=== PATIENT | female | born 2000 ===

== ENCOUNTER 2018-06-13 00:25 | Emergency (ER) | payer SELFPAY ==
--- NOTE | 2018-06-13 00:39 | ED Physician Documentation ---
Abdominal Pain - HISTORIAN Historian: patient - HPI Stated Complaint: abdominal pain x 2 days Chief Complaint: Abdominal Pain Onset: days ago (2) Duration: waxing, waning Timing: gone now Context: denies: out of country travel, bad food, recent trauma Severity: mild Quality: pain, cramping Associated Symptoms: none Exacerbated by: other (laying flat ) Relieved by: nothing Further Comments: yes (She reports starting about 24 hours ago she has a pain (epigastric in her explanation) that comes when she lays flat more frequent. The pain is cramping in nature and she has noted that she has no nausea. She has decreased appetitie. No fever. No nausea or vomiting or diarrhea. She is currently on her period. She takes oral control. She has been "fighting a cold" and she took all the zinc in a box) - ROS CONST: recent illness ("cold" ) MS/SKIN/LYMPH: none NEURO/PSYCH: none - SOCIAL HX Smoking History: non-smoker Alcohol Use: none Drug Use: none - FAMILY HX Family History: none - PAST HX Past History: none Ischemic Bowel Risk Factors: none Immunizations: UTD Home Medications: Ambulatory Orders Medication Instructions Recorded Levonorgestrel-Ethin Estradiol 1 tab PO DAILY 06/13/18 [Falmina-28 Tablet] Allergies/Adverse Reactions: Allergies Allergy/AdvReac Type Severity Reaction Status Date / Time No Known Allergies Allergy Verified 06/13/18 00:41 - VITAL SIGNS Vital Signs: Vital Signs Temp Pulse Resp BP Pulse Ox 98.2 F 82 16 133/92 98 06/13/18 00:26 06/13/18 00:26 06/13/18 00:26 06/13/18 00:26 06/13/18 00:26 - REVIEWED ASSESSMENTS Nursing Assessment Reviewed: Yes Vitals Reviewed: Yes Progress - Progress Progress: 0200: results discussed . She and are aware and agreeable to plan DG ED Results Lab/Radiology - Radiology Radiology Impressions: Abdomen series and single view chest History: Constipation and abdominal pain Findings: The lungs are clear. There is no pleural effusion. Heart size and pulmonary vascularity are normal. Upright and supine abdomen radiographs reveal a normal to moderate amount of colonic stool. The lower pelvis is incompletely imaged. There is no evidence of bowel obstruction, free air, or abnormal calcification. Impression: Normal to moderate amount of colonic stool. Electronically signed on Jun 13, 2018 2:00:51 AM WEIGHER AND MIXER by: Cliff Puente - Orders Orders: ED Orders Category Date Time Status ABD SERIES [ABD SERIES PA CHEST] [RAD] Stat Exams 06/13/18 Ordered UA W/MICRO IF INDICATED Routine Lab 06/13/18 00:48 Ordered URINE HCG Stat Lab 06/13/18 Ordered Magnesium Citrate [Citrate of Magnesia] Med 06/13/18 02:03 Discontinued 296 ml PO NOW ONE Abdominal Pain Physical Exam - Physical Exam General Appearance: no acute distress, alert EENT: eye inspection normal, ENT inspection normal, no signs of dehydration NECK: normal inspection RESPIRATORY: no resp distress, chest non-tender, breath sounds normal CVS: reg rate & rhythm, heart sounds normal, equal pulses ABDOMEN: soft, non-tender, abnormal bowel sounds (hypo active ) BACK: normal inspection SKIN: warm/dry, normal color EXTREMITIES: non-tender, normal range of motion, no evidence of injury, no edema NEURO: oriented X3 Vital Signs: Vital Signs Temp Pulse Resp BP Pulse Ox 98.2 F 82 16 133/92 98 06/13/18 00:26 06/13/18 00:26 06/13/18 00:26 06/13/18 00:26 06/13/18 00:26 Discharge Clincal Impression: Constipated Qualifiers: Constipation type: unspecified constipation type Qualified Code(s): K59.00 - Constipation, unspecified Comments: 1. Mag Citrate: 1/2 bottle now (in ER) and 1/2 bottle in 2 hours no results 2. Increase fluid and fiber 3. NO more cold med 4. See PCP in 2-4 days if no improvement 5. Return to ER for any concerns Condition: Stable Disposition: 01 HOME, SELF-CARE Decision to Admit: NO Date of Decison to Admit: 06/13/18 Decision Time: 02:03
[2018-06-13 00:41] VITALS: BP 133/92
[2018-06-13] MEDS: MAGNESIUM CITRATE 296 ML BOTTLE PO ONE (02:09)
--- NOTE | 2018-06-13 04:36 | Diagnostic Imaging Report ---
KATY TREVINO [facility] [id number] [facility] [address] [place], [place]. [address] Report Submission Date: Jun 13, 2018 2:00:51 AM TIMBER WATCHMAN Patient Study Name: HARRIS HERNANDEZ Date: Jun 13, 2018 1:32:46 AM TIMBER WATCHMAN Modality Type: DX Gender: F Description: CHEST,ABDOMEN : 89 Institution: [facility] Physician: KATY TREVINO Abdomen series and single view chest History: Constipation and abdominal pain Findings: The lungs are clear. There is no pleural effusion. Heart size and pulmonary vascularity are normal. Upright and supine abdomen radiographs reveal a normal to moderate amount of colonic stool. The lower pelvis is incompletely imaged. There is no evidence of bowel obstruction, free air, or abnormal calcification. Impression: Normal to moderate amount of colonic stool. Electronically signed on Jun 13, 2018 2:00:51 AM TIMBER WATCHMAN by: Cliff LOYA
[2018-06-13 08:31] LABS: OCCULT BLOOD,URINE 2+ (NEGATIVE); PH URINE 5.5 (5.0 - 8.0); UROBILINOGEN URINE 0.2 Eu (0.2-1.0)
== END 2018-06-13 02:17 | disposition home or self-care (01) ==
LOC: ED 00:25
DX: K59.00 Constipation, unspecified (principal)
CPT/HCPCS: 74022; 81002; 81025; 99282; 99283